=== PATIENT | female | born 1965 | race Caucasian/White ===

== ENCOUNTER 2020-10-02 17:16 | Emergency (ER) | payer OTHER ==
[~2020-10-02] VITALS: Ht 162.6 cm; Wt 64.9 kg
[2020-10-02] MEDS ORDERED: DILAUDID2 MG PO (17:58)
[2020-10-02] MEDS ORDERED: ONDANSETRON ODT8 MG PO (17:58)
== END 2020-10-02 19:36 | disposition home or self-care (01) ==
LOC: ED 17:16
DX: S52.572A Other intraarticular fracture of lower end of left radius, initial encounter for closed fracture (principal); W18.30XA Fall on same level, unspecified, initial encounter; R73.03 Prediabetes
CPT/HCPCS: 29125; 73110; 99283-25; A9270

== ENCOUNTER 2020-10-11 07:55 | Day surgery (SDC) | payer OTHER ==
[~2020-10-11] VITALS: Ht 162.6 cm; Wt 65.5 kg
[~2020-10-11 07:55] MED LIST: DILAUDID2 MG PO; ONDANSETRON ODT8 MG PO; TYLENOL EXTRA500 MG PO
[2020-10-11] MEDS ORDERED: DICLOFENAC SODI75 MG PO (12:39)
[2020-10-11] MEDS ORDERED: DILAUDID2 MG PO (12:40)
--- NOTE | 2020-10-11 12:46 | NUR ---
10/11/20 Nidia6 Jayashree Marsh 1241- PT ARRIVES TO PACU AROUSABLE TO VOICE. PT DOES NOT ANSWER QUESTIONS AT THIS TIME. RESP EVEN AND UNLABORED. OXYGEN SAT HIGH 90'S TO 100% ON 6L VIA MASK.
--- NOTE | 2020-10-11 13:25 | NUR ---
1315: PT RETURNS TO UNIT FROM PACU ON STRETCHER. ALERT AND ORIENTED. ANSWERS QUESTIONS APPROPRIATELY. VSS, RESP EVEN AND UNLABORED. DRESSING C/D/I. CMS WNL. ICE TO OPERATIVE LIMB. PT DENIES PAIN AND NAUSEA. MILLY WATER WELL. NO NEEDS VOICED, CALL LIGHT WITHIN REACH
--- NOTE | 2020-10-11 14:08 | NUR ---
1400: PT CALL FOR RN REQUESTING BR. VSS, RESP EVEN AND UNLABORED. SLING APPLIED TO OPERATIVE EXTREMITY ORDERED. DANGLES AT THE BEDSIDE. MILLY WELL, DENIES DIZZINESS AND SOB. AMBULATES TO BR WITH STANDBY ASSIST FROM THIS RN. STEADY GAIT. SUCCESSFUL POSTOP VOID. BACK TO ROOM 3. PREPARES FOR D/C
--- NOTE | 2020-10-11 15:31 | NUR ---
1445: DAUGHTER CALLED FOR RIDE FOR D/C 1450: SL D/C'D WITH CATH TIP INTACT AND PRESSURE APPLIED TO SITE. WNL. D/C INSTRUCTIONS PROVIDED AND DISCUSSED ORDERED. PT VOICES UNDERSTANDING AND DENIES QUESTIONS AND CONCERNS. 1500: WHEELED OFF OF UNIT FOR D/C BY THIS RN. TRANSFERS INTO VERHICLE INDEPENDENTLY. RESP EVEN AND UNLABORED. NO PHYSICAL S/S OF DISTRESS AT THIS TIME
--- NOTE | 2020-10-12 03:10 | EKG ---
[facility] [address] [facility] [place] [address] Signed Normal sinus rhythm Normal ECG No previous ECGs available Confirmed by ARABELLA ENCARNACION MD ([id number]) on 10/12/2020 3:10:51 AM Electronically Signed By: ARABELLA ENCARNACION MD 10/12/200 PATIENT NAME: SHMUELBRITIRAM BENITEZ Electrocardiogram DATE OF : 63 PHYSICIAN: ARABELLA ENCARNACION MD REPORT #: [id number] REPORT IS CONFIDENTIAL AND NOT TO BE RELEASED WITHOUT AUTHORIZATION
--- NOTE | 2020-10-21 17:05 | OR ---
[facility] [address] [place], [place] [address] Signed DATE OF OPERATION: 10/11/2020 SURGEON: Seth Gould MD PREOPERATIVE DIAGNOSIS: Left distal radius fracture. POSTOPERATIVE DIAGNOSIS: Left distal radius fracture. PROCEDURE PERFORMED: Open reduction and internal fixation of left distal radius. [employer]EN [employer] MARKETING ANALYST: SUSAN Connors. Janna was present and critical for all portions of procedure. TOURNIQUET TIME: 40 minutes. IMPLANTS: Eight-hole Synthes plate with 7 screws. BRIEF HISTORY: Brit is a 54-year-old female, who fell when she was gardening, landing on her left side, fracturing her distal radius. Risks and benefits of operative treatment were discussed with her and she elected to proceed. DESCRIPTION OF PROCEDURE: Once consent was obtained, she was taken to the operating room after adequate anesthesia. She was placed on the operating table. All downside pressure points well padded. A well-padded proximal arm tourniquet was placed. The arm was prepped and draped in a standard sterile fashion. The arm was exsanguinated using Esmarch bandage. Tourniquet inflated to 200 mmHg. Standard volar approach was taken through skin and subcutaneous tissue. The FCR was identified, retracted, and protected. The floor of the FCR sheath was opened and the brachioradialis was mobilized. The pronator was then sharply incised along its radial border and elevated laterally. The fracture was readily identified and using a shoe horn technique was reduced and held with a 1.6 mm K-wire. We then fashioned the smallest distal radial plate we had to the volar surface. It was then held with the central screw and adjusted using image intensifier. The Electronically Signed By: SETH GOULD MD 10/21/20 1705 PATIENT NAME: BRIT MI OPERATIVE REPORT DATE OF : 63 REPORT #: [id number] PHYSICIAN: SETH GOULD MD PCP: VARUN LAMA DO REPORT IS CONFIDENTIAL AND NOT TO BE RELEASED WITHOUT AUTHORIZATION [facility] [address] [place], [place] [address] Signed distal radius was then reduced to the plate and four screws were placed in the distal portion. The proximal two more holes were then drilled and appropriate length screws were placed. Final radiographs showed good placement of the screws, good screw lengths and anatomic reduction. The wound was copiously irrigated with normal saline. The pronator was repaired back into position using 3-0 Monocryl. The floor of the FCR sheath was closed with 3-0 Monocryl and the skin was closed with 3-0 Prolene. Steri-Strips were applied. Wound was dressed with Allevyn dressing and a radial gutter splint. She tolerated the procedure well. All sponge, needle, and instrument counts were correct. Seth Gould MD BA/THIAGOL /[id number] Copies: ~ Electronically Signed By: SETH GOULD MD 10/21/20 1705 PATIENT NAME: BRIT MI ELI OPERATIVE REPORT DATE OF : 63 REPORT #: [id number] PHYSICIAN: SETH GOULD MD PCP: VARUN LAMA DO REPORT IS CONFIDENTIAL AND NOT TO BE RELEASED WITHOUT AUTHORIZATION
== END 2020-10-11 15:00 | disposition home or self-care (01) ==
LOC: OPS 07:55 → DS 07:55 → OPS 10:00 → DS 12:00 → OPS 12:00
PROVIDERS: ATTEND Specialist
PROC: 0PSJ04Z Reposition Left Radius with Internal Fixation Device, Open Approach (ICD-10-PCS; principal; 2020-10-11 10:00)
DX: S52.502A Unspecified fracture of the lower end of left radius, initial encounter for closed fracture (principal); G89.18 Other acute postprocedural pain; W18.30XA Fall on same level, unspecified, initial encounter
CPT/HCPCS: 01820; 64417; 73100; 76942; 93005; 93010; C1713; J0330; J0690; J1100; J2001; J2704; J2795; J7121